=== PATIENT | male | born 1950 | race Caucasian/White ===

== ENCOUNTER 2024-05-14 11:10 | Inpatient (IN) ==
[2024-05-14 15:48] LABS: ABS Lymphocytes 0.4 10^3/uL (1.0-4.8); ABS Monocytes 0.8 10^3/uL (0.0-1.1); ABS Neutrophils 15.6 10^3/uL (1.5-7.6); ABS Nucleated RBC 0.01 10^3/ul; Hematocrit 43.9 % (38-53); Hemoglobin 14.9 g/dL (13.2-16.3); Lymphocyte % 2.3 %; Mean Corpuscular Hemoglobin 28.6 pg (27-33); Mean Corpuscular Hgb Conc 33.9 g/dL (31-36); Mean Corpuscular Volume 84.2 fL (80-97); Mean Platelet Volume 6.7 fL (7.5-11.2); Platelet Count 249 10^3/uL (150-450); Red Blood Count 5.22 10^6/uL (4.06-5.63); Red Cell Distribution Width 14.1 % (12-17); White Blood Count 16.8 10^3/uL (3.6-10.2)
[2024-05-14 16:21] LABS: Activated Partial Thrombo Time 31.8 seconds (26.0-38.0); INR 1.27 (0.83-1.13)
[2024-05-14 16:30] LABS: ALT 18 U/L (7-52); AST 19 U/L (13-39); Albumin/Globulin Ratio 1.7 (1-3); Alkaline Phosphatase 80 U/L (35-149); Anion Gap 9 mmol/L (2-16); Blood Urea Nitrogen 20 mg/dL (6-24); C Reactive Protein 276.24 mg/L (<8.01); CO2 Carbon Dioxide 28 mmol/L (22-32); Calcium 8.6 mg/dL (8.6-10.3); Chloride 95 mmol/L (101-111); Creatinine, Serum 0.93 mg/dL (0.67-1.17); Globulin 2.4 g/dL (2-4); Glucose 117 mg/dL (70-100); Potassium 3.8 mmol/L (3.5-5.0); Sodium 132 mmol/L (135-145); Total Bilirubin 1.8 mg/dL (0.2-1.0); Total Protein 6.4 g/dL (6.4-8.9); eGFR CKD-EPI 87.2 (>60)
[2024-05-14 16:38] LABS: Urine Appearance Turbid; Urine Bilirubin 1+ (Negative); Urine Blood 1+ (Negative); Urine Color Yellow; Urine Glucose Negative (Negative); Urine Ketones 2+ (Negative); Urine Nitrite Negative (Negative); Urine Protein 2+ (>=100 mg/dL) (Negative); Urine Specific Gravity 1.033 (1.002-1.030); Urine Urobilinogen 2+ (Negative)
[2024-05-14 17:00] LABS: Urine Bacteria Absent /HPF (Absent); Urine Red Blood Cell 2+(6-10/hpf) /HPF (0-Trace); Urine Squamous Epithelial Cell Present /HPF (Absent); Urine White Blood Cell Trace(0-5/hpf) /HPF (0-Trace)
[2024-05-14] MEDS: Piperacillin/Tazobac 3.375 BAG 3.375 GM/100 ML BAG IV ONE (17:49)
[2024-05-14] MEDS: NS 0.9% 1000 ml BAG 1,000 ML IV ONE (17:49)
[2024-05-14 19:24] LABS: Lipase < 10 U/L (11.0-82.0)
[2024-05-14] MEDS ORDERED: Ondansetron 4 mg VIAL 2 MG/ML 2 ml VIAL IV PRN (21:12)
[2024-05-14] MEDS ORDERED: HYDROmorphone 1 MG/1 ML SYRINGE IV SLOW PU PRN (21:21)
[2024-05-15] MEDS: Lactated Ringers 1000 ml BAG 1,000 ML IV SCH (00:32)
[2024-05-15] MEDS: Piperacillin/Tazobac 3.375 BAG 3.375 GM/100 ML BAG IV SCH ×2 (00:35→22:35)
[2024-05-15 04:58] LABS: ABS Lymphocytes 0.7 10^3/uL (1.0-4.8); ABS Monocytes 0.6 10^3/uL (0.0-1.1); ABS Neutrophils 12.3 10^3/uL (1.5-7.6); ABS Nucleated RBC 0.01 10^3/ul; Eosinophil % 0.1 %; Hematocrit 39.7 % (38-53); Hemoglobin 13.5 g/dL (13.2-16.3); Lymphocyte % 5.1 %; Mean Corpuscular Hemoglobin 28.4 pg (27-33); Mean Corpuscular Volume 83.5 fL (80-97); Mean Platelet Volume 7.2 fL (7.5-11.2); Platelet Count 231 10^3/uL (150-450); Red Blood Count 4.75 10^6/uL (4.06-5.63); White Blood Count 13.6 10^3/uL (3.6-10.2)
[2024-05-15 05:39] LABS: Albumin 3.3 g/dL (3.2-5.2); Albumin/Globulin Ratio 1.4 (1-3); Calcium 7.9 mg/dL (8.6-10.3); Creatinine, Serum 0.8 mg/dL (0.67-1.17); Globulin 2.4 g/dL (2-4); Potassium 3.4 mmol/L (3.5-5.0); Total Bilirubin 1.1 mg/dL (0.2-1.0); Total Protein 5.7 g/dL (6.4-8.9)
[2024-05-15] MEDS: KCL 20 MEQ/100 ML IVPREMIX 20 MEQ/100 ML BAG IV SCH (07:01)
[2024-05-15] MEDS ORDERED: Bupivacaine 0.25% EPI 200,000 30 ML SDV ONE (15:43)
[2024-05-15] MEDS ORDERED: Lidocaine 2% PF 5 ML VIAL ONE (15:53)
[2024-05-15] MEDS ORDERED: Succinylcholine 200 mg VIAL 20 mg/ml 10 ml VIAL (200 mg) ONE (15:53)
[2024-05-15] MEDS ORDERED: Sevoflurane BOTTLE ONE (15:53)
[2024-05-15] MEDS ORDERED: Propofol 10 MG/ML 20 ML BTL ONE (15:53)
[2024-05-15] MEDS ORDERED: Rocuronium 50 mg VIAL 10 mg/ml 5 ml VIAL (50 mg) ONE (15:53)
[2024-05-15] MEDS ORDERED: fentaNYL 250 mcg/5 ml 50 MCG/ML 5 ml VIAL (250 MCG) ONE (15:54)
[2024-05-15] MEDS ORDERED: Midazolam 2 mg/2 ml VIAL 1 mg/ml 2 ml VIAL (2 mg) ONE (15:54)
[2024-05-15] MEDS ORDERED: Iohexol 180 (CONTRAST) 10 ML SDV IV ONE (16:06)
[2024-05-15] MEDS ORDERED: Glucagon 1 mg VIAL KIT ONE (16:06)
[2024-05-16 09:14] LABS: Hematocrit 39.4 % (38-53); Hemoglobin 13.5 g/dL (13.2-16.3); Mean Corpuscular Hemoglobin 28.6 pg (27-33); Mean Corpuscular Hgb Conc 34.1 g/dL (31-36); Mean Corpuscular Volume 83.8 fL (80-97); Mean Platelet Volume 7.2 fL (7.5-11.2); Platelet Count 281 10^3/uL (150-450); Red Cell Distribution Width 14.1 % (12-17); White Blood Count 11.4 10^3/uL (3.6-10.2)
[2024-05-16 10:17] LABS: Calcium 7.9 mg/dL (8.6-10.3); Creatinine, Serum 0.72 mg/dL (0.67-1.17); Potassium 3.5 mmol/L (3.5-5.0); eGFR CKD-EPI 97.1 (>60)
[2024-05-16] MEDS ORDERED: Midazolam 2 mg/2 ml VIAL 1 mg/ml 2 ml VIAL (2 mg) ONE (12:31)
[2024-05-16] MEDS ORDERED: Rocuronium 50 mg VIAL 10 mg/ml 5 ml VIAL (50 mg) ONE ×2 (12:31→14:49)
[2024-05-16] MEDS ORDERED: fentaNYL 100 mcg/2 ml 50 MCG/ML VIAL ONE ×3 (12:31→16:08)
[2024-05-16] MEDS ORDERED: Propofol 10 MG/ML 20 ML BTL ONE (12:31)
[2024-05-16] MEDS ORDERED: Lidocaine 2% PF 5 ML VIAL ONE (12:31)
[2024-05-16] MEDS ORDERED: Bupivacaine 0.25% EPI 200,000 30 ML SDV ONE (14:05)
[2024-05-16] MEDS ORDERED: Ondansetron 4 mg VIAL 2 MG/ML 2 ml VIAL IV PRN (14:32)
[2024-05-16] MEDS ORDERED: fentaNYL 100 mcg/2 ml 50 MCG/ML VIAL IV PRN (14:32)
[2024-05-16] MEDS ORDERED: Naloxone 0.4 mg VIAL 0.4 mg/ml 1 ml VIAL IV PRN (14:32)
[2024-05-16] MEDS ORDERED: Ondansetron 4 mg VIAL 2 MG/ML 2 ml VIAL ONE (14:40)
[2024-05-16] MEDS ORDERED: Dexamethasone IV 4 MG/ML VIAL 1 ml VIAL ONE (14:40)
[2024-05-16] MEDS ORDERED: Acetaminophen IV 1 GM/100ML 1,000 MG/100 ML BAG IV ONE (16:16)
[2024-05-17 09:47] VITALS: BP 119/82
== END 2024-05-17 11:45 | disposition home or self-care (01) | DRG 854 ==
LOC: EDHOLD 11:10 → ED 11:10 → MED 05-15 15:46 → AA 05-15 15:58 → MED 05-15 21:24
PROVIDERS: ADMIT Surgery; ATTEND Surgery